=== PATIENT | female | born 1990 | race Two or more races ===

== ENCOUNTER 2024-08-02 16:10 | Emergency (ER) | payer OTHER ==
[~2024-08-02] VITALS: Ht 157.5 cm; Wt 54.4 kg
[2024-08-02 19:27] LABS: HEMATOCRIT 36.8 % (36.0-45.00); HEMOGLOBIN 12.8 g/dL (12.0-15.00); MEAN CELL VOLUME 86.1 fL (80.00-100.00); MEAN CORPUSCULAR HEMOGLOBIN 29.9 pg (27.00-32.0); MEAN CORPUSCULAR HGB CONC 34.7 g/dl (32.0-36.0); RED BLOOD COUNT 4.28 M/uL (4.00-6.00); RED CELL DISTRIBUTION WIDTH 14.3 % (11.5-14.5)
[2024-08-02 19:29] LABS: PLATELET COUNT 120 K/uL (150-450)
[2024-08-02 19:42] LABS: ALBUMIN 3.6 gm/dL (3.4-5.0); BILIRUBIN TOTAL 0.12 mg/dL (0.3-1.2); CALCIUM 8.5 mg/dL (8.5-10.1); CREATININE SERUM 0.81 mg/dL (0.55-1.02); GFR 81.94; GLOBULINA 4.2 G/DL (2.4-3.5); POTASSIUM 3.45 mEq/L (3.5-5.1); TOTAL PROTEIN 7.8 gm/dL (6.4-8.2)
[2024-08-02 20:25] LABS: INR 1.1; PARTIAL THROMBOPLASTIN TIME 32.5 SECONDS (22.0-34.0); PROTHROMBIN TIME 11.9 SECONDS (9.0-11.5)
== END 2024-08-02 20:58 | disposition home or self-care (01) ==
LOC: ER 16:12
PROVIDERS: General Practice
DX: D69.49 Other primary thrombocytopenia (principal); D72.818 Other decreased white blood cell count